=== PATIENT | female | born 1995 | race Caucasian/White ===

== ENCOUNTER 2017-07-26 22:52 | Emergency (ER) | payer OTHER ==
[~2017-07-26] VITALS: Ht 160 cm; Wt 68.0 kg
[2017-07-26] MEDS ORDERED: NKM (23:05)
[2017-07-26 23:10] VITALS: BP 121/80
[2017-07-26 23:42] LABS: APPEARANCE,URINE CLEAR; KETONES,URINE NEGATIVE (NEGATIVE); LEUKOCYTE ESTERASE ,URINE NEGATIVE (NEGATIVE); NITRITE,URINE NEGATIVE (NEGATIVE); PH,URINE 8 (4.5-8.0); PROTEIN,URINE NEGATIVE (NEGATIVE); UROBILINOGEN,URINE NORMAL MG/DL (0.0-1.0)
[2017-07-27] MEDS ORDERED: IBUPROFEN600 MG ORAL (00:56)
[2017-07-27] MEDS ORDERED: TRAMADOL HCL50 MG ORAL (00:57)
[2017-07-27 01:00] VITALS: BP 124/81
[2017-07-27 01:03] VITALS: BP 124/81
--- NOTE | 2017-07-27 03:58 | Emergency Room Report ---
History of Present Illness General Chief Complaint: Abdominal Pain Source: Patient Present Illness HPI Patient's 22-year-old female presented after increased right-sided abdominal pain. Patient gradual onset of symptoms. Patient reported having increased pain which was localized to her right lower abdomen. Patient stated that pain began after intercourse. Patient she stated that she had the initial onset of pain in that location and had not migrated. She denied any fever. She had not been having any vaginal discharge. she had not been vomiting. The patient stated pain was sharp in nature worse with movement. Allergies: Coded Allergies: No Known Allergies (Unverified , 07/26/17) Patient History Past Medical History: see triage record Last Menstrual Period: 3 weeks ago Now: No : 0 Reviewed Nursing Documentation: PMH: Agreed, PSxH: Agreed Review of Systems All Other Systems: negative except mentioned in HPI Physical Exam Vital Signs Date Time Temp Pulse Resp B/P (MAP) Pulse Ox O2 Delivery O2 Flow Rate FiO2 07/26/17 23:01 98.4 75 20 121/80 98 Room Air General Appearance: well appearing, no apparent distress, alert, GCS 15, non- toxic Head: normocephalic, atraumatic ENT: hearing grossly normal, normal voice Neck: full range of motion, supple Respiratory: no respiratory distress, speaking full sentences Cardiovascular #1: normal inspection, regular rate, rhythm, no gallop Gastrointestinal: normal inspection, normal bowel sounds, non tender, soft, no mass Musculoskeletal: no calf tenderness Neurologic: normal gait Psychiatric: mood/affect normal Skin: no rash Medical Decision Making Diagnostic Impression: Primary Impression: Ovarian cyst ER Course Patient presented for abdominal pain. Differential diagnoses included ischemic bowel, appendicitis, ovarian torsion, ruptured cyst ,perforated viscus, abdominal aortic aneurysm, inferior myocardial infarction, viral gastroenteritis. Because of complexity of patient's case laboratory testing and imaging studies were ordered. A pelvic ultrasound read by radiology showed a small amount of free fluid and ovarian cyst. The patient given pain medication with improvement. The patient is advised to follow up with obgyn in 1-2 days. Patient is advised to return if any worsening condition or if any changes in status that are concerning. Last Vital Signs Date Time Temp Pulse Resp B/P (MAP) Pulse Ox O2 Delivery O2 Flow Rate FiO2 07/27/17 01:03 98.4 72 16 124/81 99 Room Air Status: improved Disposition: HOME, SELF-CARE Condition: Stable Scripts Tramadol Hcl* (ULTRAM*) 50 Mg Tablet 50 MG ORAL Q6H Y for For Pain, #15 TAB 0 Refills Prov: Wilver Valencia 07/27/17 Ibuprofen* (MOTRIN*) 600 Mg Tablet 600 MG ORAL Q8H Y for For Pain, #30 TAB 0 Refills Prov: Wilver Valencia 07/27/17 Patient Instructions: Ovarian Cyst Wilver Valencia Jul 27, 2017 03:58
== END 2017-07-27 01:03 | disposition home or self-care (01) ==
LOC: EMR 23:48
DX: N83.209 Unspecified ovarian cyst, unspecified side (principal)
CPT/HCPCS: 76830; 76856; 81003; 81025; 99284

== ENCOUNTER 2017-10-01 16:00 | Outpatient (RCR) | payer OTHER ==
[~2017-10-01 16:00] MED LIST: IBUPROFEN600 MG ORAL; NKM; TRAMADOL HCL50 MG ORAL
== END 2017-10-13 | disposition home or self-care (01) ==
LOC: PTY 16:00
DX: M54.9 Dorsalgia, unspecified (principal); R53.1 Weakness